=== PATIENT | female | born 1955 | race Caucasian/White ===

== ENCOUNTER 2017-07-26 06:10 | Emergency (ER) | payer SELFPAY ==
[2017-07-26] MEDS ORDERED: ONDANSETRON 4 MG/2 ML VIAL ONE ×2 (06:46→08:51)
[2017-07-26 07:01] VITALS: TEMP 97.9; BMI 23.0
[2017-07-26] MEDS ORDERED: KETOROLAC TROMETHAMINE 15 MG/ML VIAL ONE (07:03)
[2017-07-26 07:07] LABS: BASOPHIL 0.6 % (0-2.0); EOSINOPHIL 1.8 % (0-4.5); MCH 32.7 pg (25.7-33.7); MCHC 34.4 g/dl (32.0-36.0); MEAN CELL VOLUME 95.1 fl (80-96); MEAN PLT VOLUME 8.9 fl (7.5-11.1); NEUTROPHILS 42.5 % (42.8-82.8); PLATELET COUNT 240 K/MM3 (134-434); RDW 13.5 % (11.6-15.6); WHITE BLOOD COUNT 12.1 K/mm3 (4.0-10.0)
[2017-07-26] MEDS ORDERED: ONDANSETRON 4 MG/2 ML VIAL IVPUSH ONE ×2 (07:11→08:50)
[2017-07-26] MEDS ORDERED: SODIUM CHLORIDE 1,000 ML IV ONE (07:12)
[2017-07-26] MEDS ORDERED: KETOROLAC TROMETHAMINE 15 MG/ML VIAL IVPUSH ONE (07:12)
[2017-07-26] MEDS ORDERED: morphine CARPU-JECT 2 MG/1 ML DISP.SYRIN IVPUSH ONE (07:19)
--- NOTE | 2017-07-26 07:27 | PDOC ---
History of Present Illness - General Chief Complaint: Pain, Acute Stated Complaint: ABD PAIN,VOMITING Time Seen by Provider: 07/26/17 07:07 - History of Present Illness Initial Comments: 07/26/17 07:20 62yo female with no pmhx and pshx of c section x 3 presents with acute onset of L flank pain that started at 5am today. States pain woke her up. Never had a similar pain in the past. Starts in her L back and radiates around to her suprapubic region. Assoc with n/v. No diarrhea. No hematuria. No dysuria. No hesitancy. No recent f/c. No cp/sob. No cough. No sore throat. No rhinorrhea. No headache. Was feeling at baseline yesterday. No other complaints. Past History - Past Medical History Allergies/Adverse Reactions: Allergies Allergy/AdvReac Type Severity Reaction Status Date / Time No Known Allergies Allergy Verified 07/26/17 06:31 Home Medications: Ambulatory Orders Ibuprofen [Motrin -] 600 mg PO TID PRN #15 tablet 07/26/17 Ondansetron [Zofran *Odt*] 8 mg SL TID PRN #10 od.tablet 07/26/17 Oxycodone HCl/Acetaminophen [Percocet 5-325 mg Tablet] 1 tab PO Q6H PRN #10 tablet MDD 4 tabs 07/26/17 Tamsulosin HCl [Flomax] 0.4 mg PO DAILY #10 capsule 07/26/17 Other medical history: Pt denies - Suicide/Smoking/Psychosocial Hx Smoking History: Never smoked Have you smoked in the past 12 months: No Information on smoking cessation initiated: No Hx Alcohol Use: No Drug/Substance Use Hx: No Substance Use Type: None Review of Systems - Review of Systems Constitutional: No: Chills, Fever HEENTM: No: Nose Congestion, Throat Pain Respiratory: No: Cough, Shortness of Breath Cardiac (ROS): No: Chest Pain, Palpitations ABD/GI: Yes: Nausea, Vomiting. No: Blood Streaked Bowels, Constipated, Diarrhea : Yes: Flank Pain. No: Burning, Dysuria, Frequency, Hematuria Musculoskeletal: Yes: Back Pain. No: Muscle Weakness Integumentary: No: Rash Neurological: No: Headache All Other Systems: Reviewed and Negative *Physical Exam - Vital Signs Last Vital Signs Temp Pulse Resp BP Pulse Ox 97.9 F 88 20 130/82 97 07/26/17 06:32 07/26/17 06:32 07/26/17 06:32 07/26/17 06:32 07/26/17 06:32 - Physical Exam Comments: 07/26/17 07:31 gen: aaox3, uncomfortable, in pain heent: mmm, eomi neck: supple heart: +s1s2 reg Lungs: cta b/l Abd: soft, ttp suprapubic and LLQ, +L cva ttp ext: no c/c/e neuro: cn ii-xii grossly intact, no focal deficits skin: no rash ED Treatment Course - LABORATORY CBC & Chemistry Diagram: 07/26/17 06:45 07/26/17 06:45 - RADIOLOGY Radiology Studies Ordered: Category Date Time Status ABDOMEN & PELVIS CT W/O CONTR [CT] Stat CT Scan 07/26/17 07:20 Ordered - Medications Given in the ED: ED Medications Discontinued Medications Generic Name Dose Route Start Last Admin Trade Name Clif PRN Reason Stop Dose Admin Ketorolac Tromethamine 15 mg 07/26/17 07:12 07/26/17 07:13 Toradol Injection - IVPUSH 07/26/17 07:13 15 mg NOW ONE Administration Ondansetron HCl 4 mg 07/26/17 07:11 07/26/17 07:11 Zofran Injection IVPUSH 07/26/17 07:12 4 mg NOW ONE Administration Medical Decision Making - Medical Decision Making 07/26/17 07:32 62yo female with acute onset of L flank pain -suspect kidney stone -differential includes AAA (no palpable mass), diveriticulitis, pyelonephritis, hydronephrosis -will obtain labs, ct abd/pelvis, ua/ucx -pain control, nausea control, ivf hydration -reassess 07/26/17 09:19 pt feeling better. Pain controlled. Discussed imaging results - 4mm uvj stone on L. Mild hydro. No uti. Discussed need for follow up with PMD and urology. Will give urine strainer. Discussed all reasons to return to the Ed and need for follow up. answered all questions. 07/26/17 09:33 discussed with the patient how to strain her urine. Pt stable for d/c to home. *DC/Admit/Observation/Transfer Diagnosis at time of Disposition: Kidney stone on left side - Discharge Dispostion Admit: No - Prescriptions Prescriptions: Tamsulosin HCl [Flomax] 0.4 mg PO DAILY #10 capsule Ibuprofen [Motrin -] 600 mg PO TID PRN #15 tablet PRN Reason: Pain Level 6-10 Oxycodone HCl/Acetaminophen [Percocet 5-325 mg Tablet] 1 tab PO Q6H PRN #10 tablet MDD 4 tabs PRN Reason: Pain Level 6-10 Ondansetron [Zofran *Odt*] 8 mg SL TID PRN #10 od.tablet PRN Reason: Nausea And/Or Vomiting - Referrals Referrals: Neal Graham MD [Staff Physician] - Gurdeep Hinds MD [Staff Physician] - - Patient Instructions Printed Discharge Instructions: DI for Kidney Stones Additional Instructions: Please strain all urine. If you pass the stone and collect it in the strainer please take it with you to the urologist office. Please follow up with the urologist in 2-3 days. Please return to the ED with any further concerns. Please take all meds as prescribed. Please also follow up with your PMD in 2-3 days. Print Language: YI
[2017-07-26 07:28] LABS: ALBUMIN 3.8 g/dl (3.4-5.0); ALK PHOS 102 U/L (45-117); ANION GAP 12 (8-16); BILIRUBIN,TOTAL 0.4 mg/dL (0.2-1.0); CALCIUM 8.8 mg/dL (8.5-10.1); CO2 25 mmol/L (21-32); CREATININE 0.8 mg/dL (0.55-1.02); GLUCOSE,RANDOM 149 mg/dL (74-106); SGOT/AST 23 U/L (15-37); SGPT/ALT 20 U/L (12-78); TOT PROT 7.3 g/dl (6.4-8.2)
[2017-07-26 08:33] LABS: URINE APPEARANCE CLOUDY; URINE BILIRUBIN NEGATIVE (NEGATIVE); URINE BLOOD NEGATIVE (NEGATIVE); URINE COLOR YELLOW; URINE GLUCOSE (UA) NEGATIVE (NEGATIVE); URINE KETONE NEGATIVE (NEGATIVE); URINE NITRITE NEGATIVE (NEGATIVE); URINE PROTEIN 1+ (NEGATIVE); URINE UROBILINOGEN NEGATIVE mg/dL (0.2-1.0)
[2017-07-26] MEDS ORDERED: morphine CARPU-JECT 10 MG/1 ML DISP.SYRIN ONE ×2 (08:40→08:41)
[2017-07-26] MEDS ORDERED: SODIUM CHLORIDE 0.9% 1000 ML INFUS.BAG IV ONE (08:50)
[2017-07-26] MEDS ORDERED: FAMOTIDINE 20 MG/50 ML IVPB 50 ML IVPB ONE ×2 (08:50→08:51)
[2017-07-26] MEDS ORDERED: TAMSULOSIN HCL 0.4 MG CAP.ER.24H (FP) PO ONE (08:59)
[2017-07-26 09:23] LABS: URINE RBC 0-3 /hpf (0-3); URINE WBC 0-3 /hpf /hpf (3-5)
[2017-07-26] MEDS ORDERED: TAMSULOSIN HCL 0.4 MG CAP.ER.24H (FP) ONE (09:38)
[2017-07-26 10:01] VITALS: BP 113/45; PULSE 81
[2017-07-26 11:48] LABS: URINE LEUK ESTERASE Negative (NEGATIVE)
== END 2017-07-26 10:42 | disposition home or self-care (01) ==
LOC: JER 06:10
PROC: 3E033NZ Introduction of Analgesics, Hypnotics, Sedatives into Peripheral Vein, Percutaneous Approach (ICD-10-PCS; principal; 2017-07-26)
PROC: 3E033GC Introduction of Other Therapeutic Substance into Peripheral Vein, Percutaneous Approach (ICD-10-PCS; 2017-07-26)
PROC: 3E0337Z Introduction of Electrolytic and Water Balance Substance into Peripheral Vein, Percutaneous Approach (ICD-10-PCS; 2017-07-26)
PROC: 3E0333Z Introduction of Anti-inflammatory into Peripheral Vein, Percutaneous Approach (ICD-10-PCS; 2017-07-26)
DX: N23 Unspecified renal colic (principal)
CPT/HCPCS: 36415; 74176-TC; 80053; 81003; 81015; 84703; 85025; 87086; 99283-25

== ENCOUNTER 2017-09-06 13:56 | Inpatient (IN) | payer BC ==
[2017-09-06 14:01] VITALS: BMI 23.0
--- NOTE | 2017-09-06 15:03 | PDOC ---
History of Present Illness - General Chief Complaint: Pain Stated Complaint: SENT BY PCP Time Seen by Provider: 09/06/17 14:41 History Source: Patient Exam Limitations: No Limitations - History of Present Illness Initial Comments: This is a 62 YOF with h/o renal stone who presents c/o RUQ abdominal pain. 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 She took no medications for this and has never had this pain before. This feels nothing like her prior kidney stone pain. She has had nausea and one episode of vomiting, as well as a feeling like her abdomen is distended. She denies fever, chills, diarrhea, constipation, black or bloody stool, dysuria, hematuria, chest pain, shortness of breath, cough, or other recent symptoms. Past History - Past Medical History Allergies/Adverse Reactions: Allergies Allergy/AdvReac Type Severity Reaction Status Date / Time No Known Allergies Allergy Verified 09/06/17 14:01 Home Medications: Ambulatory Orders NK [No Known Home Medication] 09/06/17 COPD: No - Suicide/Smoking/Psychosocial Hx Smoking History: Never smoked Have you smoked in the past 12 months: No Hx Alcohol Use: No Drug/Substance Use Hx: No Substance Use Type: None Review of Systems - Review of Systems Constitutional: No: Chills, Fever, Unexplained wgt Loss HEENTM: No: Nose Congestion, Throat Pain Respiratory: No: Cough, Shortness of Breath Cardiac (ROS): No: Chest Pain, Palpitations ABD/GI: Yes: Abdominal Distended, Nausea, Vomiting, Other (right upper abdominal pain). No: Constipated, Diarrhea : No: Burning, Dysuria Musculoskeletal: No: Back Pain, Neck Pain Integumentary: No: Bruising, Rash Neurological: No: Headache, Numbness, Tingling, Weakness, Dizziness Endocrine: No: Unexplained Weight Gain, Unexplained Weight Loss *Physical Exam - Vital Signs Last Vital Signs Temp Pulse Resp BP Pulse Ox 97.6 F 82 20 147/83 10 L 09/06/17 13:58 09/06/17 13:58 09/06/17 13:58 09/06/17 13:58 09/06/17 13:58 - Physical Exam General Appearance: Yes: Nourished, Appropriately Dressed, Other (pleasant Yakut-speaking female laying on hospital bed and answering appropriately, appears comfortable). No: Apparent Distress HEENT: positive: EOMI, SHANELL, Normal Voice, Hearing Grossly Normal. negative: Scleral Icterus (R), Scleral Icterus (L), Nasal Congestion Neck: positive: Trachea midline, Supple. negative: Tender, Rigid Respiratory/Chest: positive: Lungs Clear, Normal Breath Sounds. negative: Respiratory Distress, Crackles, Rhonchi, Stridor, Wheezing Cardiovascular: positive: Regular Rhythm, Regular Rate. negative: Murmur Gastrointestinal/Abdominal: positive: Normal Bowel Sounds, Tender (moderate RUQ ttp with positive Case's sign, no epigastric, RLQ, or other abdominal ttp, no peritoneal signs), Soft. negative: Organomegaly, Pulsatile Mass, Guarding Musculoskeletal: positive: Normal Inspection. negative: CVA Tenderness, Decreased Range of Motion, Vertebral Tenderness Extremity: positive: Normal Capillary Refill, Normal Inspection, Normal Range of Motion. negative: Tender, Cyanosis Integumentary: positive: Normal Color, Dry, Warm. 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 On exam slight HTN but otherwise VS wnl, no acute distress, RUQ ttp +Case's sign. No jaundice, no epigastric ttp, no ttp McBurney's point, no confusion, otherwise exam wnl. DDX IBNLT cholecystitis (i.e. gallstone), pancreatitis, PUD, ureteral stone, appendicitis, SBO, AAA, etc. Ordered is abdominal US, CBCD, CMP, lipase, T&S, coags. 09/06/17 16:59 Patient ask for pain medication, ordered is 1 GM IV Tylenol. 12/06/17 17:57 Patient's pain much improved after Tylenol. On workup she has slight WBC elevation and mild alk phos elevation. US shows stones within the GB, distended GB with thickened ghosh. Surgery paged. 09/06/17 18:[address] Menon who will come see the patient in the ED and check OR schedule for tomorrow. Dr. Dagoberto Guillaume (Pt's PCP) is paged to inform him and discuss to whom to admit. 09/06/17 19:07 Patient is admitted to Dr. Dagoberto Guillaume, inpatient med/surg. Dr. Guillaume will place consult order for ID Dr. Mallory. Consult order placed to Dr. Menon. *DC/Admit/Observation/Transfer Diagnosis at time of Disposition: Cholecystitis with cholelithiasis Qualifiers: Cholelithiasis location: gallbladder Cholecystitis acuity: acute Biliary obstruction: without biliary obstruction Qualified Code(s): K80.00 - Calculus of gallbladder with acute cholecystitis without obstruction - Discharge Dispostion Condition at time of disposition: Guarded Admit: Yes - Referrals Referrals: Dagoberto Guillaume MD [Primary Care Provider] - - Patient Instructions - Post Discharge Activity
[2017-09-06 16:46] LABS: URINE APPEARANCE CLEAR; URINE BILIRUBIN NEGATIVE (NEGATIVE); URINE BLOOD NEGATIVE (NEGATIVE); URINE COLOR STRAW; URINE GLUCOSE (UA) NEGATIVE (NEGATIVE); URINE KETONE NEGATIVE (NEGATIVE); URINE LEUK ESTERASE NEGATIVE (NEGATIVE); URINE NITRITE NEGATIVE (NEGATIVE); URINE PROTEIN NEGATIVE (NEGATIVE); URINE UROBILINOGEN NEGATIVE mg/dL (0.2-1.0)
[2017-09-06] MEDS ORDERED: SODIUM CHLORIDE 0.9% 1000 ML INFUS.BAG IV ONE (16:57)
[2017-09-06] MEDS ORDERED: ACETAMINOPHEN 1000 MG/100 ML VIAL (NON FORMULARY) IVPB ONE (16:57)
[2017-09-06] MEDS ORDERED: ACETAMINOPHEN INJECTION 100 ML IVPB ONE (17:02)
[2017-09-06 17:18] LABS: BASOPHIL 0.2 % (0-2.0); EOSINOPHIL 0.1 % (0-4.5); MCH 33.1 pg (25.7-33.7); MCHC 34.2 g/dl (32.0-36.0); MEAN PLT VOLUME 9.5 fl (7.5-11.1); PLATELET COUNT 281 K/MM3 (134-434); WHITE BLOOD COUNT 10.6 K/mm3 (4.0-10.0)
[2017-09-06 17:36] LABS: ALBUMIN 4.2 g/dl (3.4-5.0); ANION GAP 8 (8-16); CALCIUM 9.1 mg/dL (8.5-10.1); CO2 29 mmol/L (21-32); CREATININE 0.6 mg/dL (0.55-1.02); GLUCOSE,RANDOM 90 mg/dL (74-106); SGOT/AST 25 U/L (15-37); SGPT/ALT 27 U/L (12-78)
[2017-09-06 17:39] LABS: ALK PHOS 128 U/L (45-117); BILIRUBIN,TOTAL 0.3 mg/dL (0.2-1.0); TOT PROT 8.1 g/dl (6.4-8.2)
[2017-09-06 17:43] LABS: INR 1.09 (0.82-1.09); PROTHROMBIN TIME (PATIENT) 12.3 SEC (9.98-11.88)
--- NOTE | 2017-09-06 18:46 | PDOC ---
Attending Attestation - Resident Resident Name: Tanvi Mendenhall - ED Attending Attestation I have performed the following: I have examined & evaluated the patient, The case was reviewed & discussed with the resident, I agree w/resident's findings & plan, Exceptions are as noted - HPI HPI: 09/06/17 18:39 62 F with h/o nephrolithiasis presenting to ER with abdominal pain. Pt reports RUQ pain that started after eating dinner at 2am this morning. Pain is constant , non-radiating. Has never had this before. Endorses N+V x 1. No F/C. No diarrhea/constipation. No prior surgeries. - Physicial Exam PE: 09/06/17 18:46 "GENERAL: Awake, alert, and fully oriented, in no acute distress HEAD: No signs of trauma EYES: PERRLA, EOMI, sclera anicteric, conjunctiva clear ENT: Auricles normal inspection, hearing grossly normal, nares patent, oropharynx clear without exudates. Moist mucosa NECK: Nontender, no stepoffs, Normal ROM, supple, no lymphadenopathy, JVD, or masses LUNGS: Breath sounds equal, clear to auscultation bilaterally. No wheezes, and no crackles HEART: Regular rate and rhythm, normal S1 and S2, no murmurs, rubs or gallops ABDOMEN: +RUQ tenderness, + Case's, no rebound/guarding EXTREMITIES: Normal range of motion, no edema. No clubbing or cyanosis. No cords, erythema, or tenderness NEUROLOGICAL: Cranial nerves II through XII intact. 5/5 strength and sensation in all extremities, Normal speech, normal gait SKIN: Warm, Dry, normal turgor, no rashes or lesions noted. " - Medical Decision Making 09/06/17 18:46 62 F with RUQ pain, N+V, and + case's on exam. Concerning for acute cholecystitis. - Labs - RUQ sono - NPO - IVF, pain control
[2017-09-06] MEDS ORDERED: morphine CARPU-JECT 4 MG/1 ML DISP.SYRIN IVPUSH ONE (19:11)
[2017-09-06] MEDS ORDERED: morphine SULFATE 4 MG/ML VIAL ONE (19:14)
--- NOTE | 2017-09-06 19:16 | HP ---
Admitting History and Physical - Admission Chief Complaint: pt came to my office new pt c/o ruq pain scale 6. n/v x 1 day. no other complaints History of Present Illness: had h/o of gallstones no tx in past History Source: Patient Limitations to Obtaining History: No Limitations - Past Medical History Gastrointestinal: Yes: GERD, Other (gallstones) ...: No - Smoking History Smoking history: Never smoked Have you smoked in the past 12 months: No - Alcohol/Substance Use Hx Alcohol Use: No History of Substance Use: reports: None - Social History ADL: Independent History of Recent Travel: No Home Medications - Allergies Allergies/Adverse Reactions: Allergies Allergy/AdvReac Type Severity Reaction Status Date / Time No Known Allergies Allergy Verified 09/06/17 14:01 - Home Medications Home Medications: Ambulatory Orders NK [No Known Home Medication] 09/06/17 Family Disease History - Family Disease History Family History: Unremarkable Review of Systems - Review of Systems Constitutional: reports: Other (ruq pain) Physical Examination Vital Signs: Vital Signs Temperature 97.6 F 09/06/17 13:58 Pulse Rate 82 09/06/17 13:58 Respiratory Rate 20 09/06/17 13:58 Blood Pressure 147/83 09/06/17 13:58 O2 Sat by Pulse Oximetry (%) 10 L 09/06/17 13:58 Constitutional: Yes: Well Nourished Eyes: Yes: WNL HENT: Yes: WNL Neck: Yes: WNL Cardiovascular: Yes: WNL Respiratory: Yes: WNL Gastrointestinal: Yes: Tenderness, Epigastrium ...Rectal Exam: Yes: Deferred Renal/: Yes: WNL Breast(s): Yes: WNL Musculoskeletal: Yes: WNL Extremities: Yes: WNL Edema: No Peripheral Pulses WNL: Yes Integumentary: Yes: WNL Neurological: Yes: WNL Labs: CBC, BMP 09/06/17 17:00 09/06/17 16:20 Assessment/Plan npo sx consult id to see py ? gi if complicated iv cefazolin iv dilodid po pain
[2017-09-06] MEDS ORDERED: cefOXitin SODIUM 2 GM VIAL (RESTRICTED TO ID) IVPB ONE (19:19)
[2017-09-06] MEDS ORDERED: HYDROmorphone HCL CARPU-JECT 2 MG/1 ML DISP.SYRIN IVPB PRN (19:19)
[2017-09-06] MEDS ORDERED: PANTOPRAZOLE SODIUM 40 MG VIAL IVPUSH ONE (19:30)
[2017-09-06] MEDS ORDERED: CEFOXITIN SODIUM 2 GM in DEXTROSE 5%-WATER - 100 ML IVPB ONE ×2 (19:30→21:30)
[2017-09-06] MEDS: SODIUM CHLORIDE 1,000 ML IV SCH ×2 (19:35→19:42)
[2017-09-06] MEDS ORDERED: PANTOPRAZOLE SODIUM 40 MG/100 ML BAG IVPB ONE (19:36)
--- NOTE | 2017-09-06 19:57 | CONSULT ---
Consult Consult Specialty:: General Surgery Referred by:: Dr. Mendenhall, Dr. Guillaume Reason for Consultation:: cholecystitis - History of Present Illness Chief Complaint: RUQ pain History of Present Illness: 62yo F, generally healthy, h/o c-sections x3, GERD, urolithiasis/ nephrolithiasis, c/o RUQ pain that came on ~2am after having some soup (chicken/ rice) at work early this morning, associated with abdominal distention/ bloating. She got home shortly after, and felt that perhaps vomiting would make her feel better, so took some baking soda and water, and threw up, which did help briefly. The pain persisted, however, and she has never had pain this bad before. It does not feel like the ureteral stone she had in July (was left- sided), and her PCP sent her to ER. In the ER, she had a wbc 10.6, normal LFTs except slightly elevated alk phos at 128, normal lipase. She is afebrile, no f/c , no nausea or further emesis. No change in bowel habits, no d/c. Normal bowel movement yesterday. She has been NPO since this morning, last had coffee. US in ER showed multiple gallstones in distended gallbladder, thickened wall but no pericholecystic fluid, normal cbd. The CT from July shows at least 3 large rim-calcified gallstones. She currently has pain in the epigastric area and RUQ , about the same as earlier, despite IV acetaminophen. She is getting IV fluids and has voided. - History Source History Provided By: Patient Limitations to Obtaining History: No Limitations - Past Medical History Gastrointestinal: Yes: GERD Hepatobiliary: Yes: Cholelithiasis Renal/: Yes: Renal Calculi Reproductive: Yes: Postmenopausal ...: No - Past Surgical History Past Surgical History: Yes: Colonoscopy (Dr. Jacob, few yrs ago), (x3 ) - Alcohol/Substance Use Hx Alcohol Use: No History of Substance Use: reports: None - Smoking History Smoking history: Never smoked Have you smoked in the past 12 months: No - Social History ADL: Independent Occupation: housekeeping History of Recent Travel: No Home Medications - Allergies Allergies/Adverse Reactions: Allergies Allergy/AdvReac Type Severity Reaction Status Date / Time No Known Allergies Allergy Verified 09/06/17 14:01 - Home Medications Home Medications: Ambulatory Orders NK [No Known Home Medication] 09/06/17 Home Medications (free text): Zantac prn Family Disease History - Family Disease History Family Disease History: Other: Mother ( of liver cirrhosis) Review of Systems - Review of Systems Constitutional: denies: Chills, Fever Eyes: reports: Other (uses reading glasses). denies: Recent Change in Vision HENT: reports: Other (has several permanent dental implants). denies: Difficult Swallowing, Hearing Loss, Nasal Congestion, Throat Pain Neck: denies: Pain on Movement, Swollen Glands, Tenderness Cardiovascular: denies: Chest Pain, Palpitations Respiratory: denies: Cough, SOB Gastrointestinal: reports: Abdominal Pain (with hpi), Bloating (with hpi), Indigestion (at times, uses Zantac prn), Nausea (occasionally when she gets headaches), Vomiting (one self-induced episode). denies: Constipation, Diarrhea Genitourinary: denies: Burning, Dysuria, Frequency, Urgency Musculoskeletal: reports: Back Pain (occasionally), Joint Pain (occasionally, knees, right elbow). denies: Muscle Pain Integumentary: denies: Change in Color, Rash Neurological: reports: Headache (sometimes, from stress or hunger, responds to ibuprofen prn). denies: Dizziness, Unsteady Gait Psychiatric: denies: Anxiety, Depression Physical Exam Vital Signs: Vital Signs Temperature 98.2 F 09/06/17 19:33 Pulse Rate 77 09/06/17 19:33 Respiratory Rate 14 09/06/17 19:33 Blood Pressure 117/53 09/06/17 19:33 O2 Sat by Pulse Oximetry (%) 99 09/06/17 19:33 Constitutional: Yes: Well Nourished, Calm, Mild Distress (secondary to pain) Eyes: Yes: Conjunctiva Clear, EOM Intact. No: Sclera Icterus HENT: Yes: Atraumatic, Normocephalic Neck: Yes: Supple, Trachea Midline Cardiovascular: Yes: Regular Rate and Rhythm. No: Murmur Respiratory: Yes: Regular, CTA Bilaterally Gastrointestinal: Yes: Soft, Hypoactive Bowel Sounds, Tenderness (RUQ and epigastric also just lateral to RUQ but not onto flank/CVA, no rebound or guarding), Tenderness, Epigastrium. No: Distention, Tenderness, Rebound ...Rectal Exam: Yes: Deferred Renal/: No: CVA Tenderness - Left, CVA Tenderness - Right Musculoskeletal: No: Back Pain (no direct tenderness), Joint Swelling Extremities: No: Cool, Cyanosis Edema: No Peripheral Pulses WNL: Yes Integumentary: No: Jaundice, Rash Neurological: Yes: Alert, Oriented Psychiatric: Yes: Alert, Oriented Labs: CBC, BMP 09/06/17 17:00 09/06/17 16:20 CMP Sodium 138 mmol/L (136-145) 09/06/17 16:20 Potassium 4.0 mmol/L (3.5-5.1) 09/06/17 16:20 Chloride 101 mmol/L (98-107) 09/06/17 16:20 Carbon Dioxide 29 mmol/L (21-32) 09/06/17 16:20 Anion Gap 8 (8-16) 09/06/17 16:20 BUN 9 mg/dL (7-18) D 09/06/17 16:20 Creatinine 0.6 mg/dL (0.55-1.02) D 09/06/17 16:20 Creat Clearance w eGFR > 60 (>60) 09/06/17 16:20 Random Glucose 90 mg/dL (74-106) D 09/06/17 16:20 Calcium 9.1 mg/dL (8.5-10.1) 09/06/17 16:20 Total Bilirubin 0.3 mg/dL (0.2-1.0) D 09/06/17 16:20 AST 25 U/L (15-37) 09/06/17 16:20 ALT 27 U/L (12-78) D 09/06/17 16:20 Alkaline Phosphatase 128 U/L (45-117) H D 09/06/17 16:20 Total Protein 8.1 g/dl (6.4-8.2) 09/06/17 16:20 Albumin 4.2 g/dl (3.4-5.0) 09/06/17 16:20 Lipase 169 U/L (73-393) 09/06/17 16:20 INR, PTT INR 1.09 (0.82-1.09) 09/06/17 17:00 Urine Test Results Urine Color Straw 09/06/17 15:20 Urine Appearance Clear 09/06/17 15:20 Urine pH 9.0 (5.0-8.0) H 09/06/17 15:20 Ur Specific [place] 1.008 (1.001-1.035) 09/06/17 15:20 Urine Protein Negative (NEGATIVE) 09/06/17 15:20 Urine Glucose (UA) Negative (NEGATIVE) 09/06/17 15:20 Urine Ketones Negative (NEGATIVE) 09/06/17 15:20 Urine Blood Negative (NEGATIVE) 09/06/17 15:20 Urine Nitrite Negative (NEGATIVE) 09/06/17 15:20 Urine Bilirubin Negative (NEGATIVE) 09/06/17 15:20 Imaging - Results Cat Scan: Image Reviewed (from Jul 2017) Ultrasound: Report Reviewed (multiple gallstones, thickened gb wall, no pericholecystic fluid, cbd normal, no biliary dilation), Image Reviewed EKG: Pending Problem List - Problems (1) Calculus of gallbladder with acute cholecystitis without obstruction Assessment/Plan: admitted to medicine/PMD keep NPO with IV fluids until postop pain meds prn trend labs in am GI/DVT prophylaxis IV antibiotics (Cefoxitin) started, ID consulted to continue through 1-2 doses postop if am labs show increases in LFTs or concern for possible ductal stone, would do MRCP and consult GI (known to Nidia) if not, plan for lap brayden when OR available tomorrow Discussed with patient risks, benefits and alternatives of laparoscopic possible open cholecystectomy, including but not limited to bleeding, infection , injury to adjacent structures, bile leak or ductal injury, intraabdominal abscess, need for further procedures; alternatives include antibiotics, delayed or no surgery - risks of this include recurrence of biliary colic, cholecystitis , cholangitis, pancreatitis. Patient desires to proceed with operation - pending am lab results, either I or my partner Dr. Hopson will take her to OR tomorrow for above. Informed consent signed for same. Thank you for the opportunity to participate in the care of this patient. Code(s): K80.00 - CALCULUS OF GALLBLADDER W ACUTE CHOLECYST W/O OBSTRUCTION (2) Abdominal pain, acute, right upper quadrant Code(s): R10.11 - RIGHT UPPER QUADRANT PAIN (3) GERD without esophagitis Assessment/Plan: GI prophylaxis while in hospital Code(s): K21.9 - GASTRO-ESOPHAGEAL REFLUX DISEASE WITHOUT ESOPHAGITIS (4) Kidney stone on left side Code(s): N20.0 - CALCULUS OF KIDNEY
[2017-09-06 20:10] LABS: URINE LEUK ESTERASE Negative (NEGATIVE)
[2017-09-06] MEDS: DOCUSATE SODIUM 100 MG CAPSULE (FP) PO SCH (22:48)
[2017-09-07] MEDS: DOCUSATE SODIUM 100 MG CAPSULE (FP) PO SCH ×3 (05:50→21:30)
[2017-09-07] MEDS: SODIUM CHLORIDE 1,000 ML IV SCH ×2 (05:50→19:30)
[2017-09-07 07:25] LABS: BASOPHIL 0.1 % (0-2.0); EOSINOPHIL 0.2 % (0-4.5); MCH 32.4 pg (25.7-33.7); MCHC 33.5 g/dl (32.0-36.0); MEAN CELL VOLUME 96.7 fl (80-96); MEAN PLT VOLUME 9.5 fl (7.5-11.1); PLATELET COUNT 255 K/MM3 (134-434); RDW 13.3 % (11.6-15.6); WHITE BLOOD COUNT 11.5 K/mm3 (4.0-10.0)
[2017-09-07] MEDS ORDERED: cefOXitin SODIUM 2 GM VIAL (RESTRICTED TO ID) IVPB ONE ×2 (07:42→18:30)
[2017-09-07 08:00] LABS: ALBUMIN 3.6 g/dl (3.4-5.0); ALK PHOS 155 U/L (45-117); ANION GAP 8 (8-16); BILIRUBIN,TOTAL 0.5 mg/dL (0.2-1.0); CALCIUM 8.7 mg/dL (8.5-10.1); CO2 28 mmol/L (21-32); CREATININE 0.6 mg/dL (0.55-1.02); GLUCOSE,RANDOM 93 mg/dL (74-106); SGOT/AST 182 U/L (15-37); SGPT/ALT 153 U/L (12-78)
--- NOTE | 2017-09-07 09:52 | PN ---
Progress Note, Physician Chief Complaint: abdominal pain History of Present Illness: 62yo female PMH GERD, nephrolithiasis presented with RUQ abdominal pain. abdomainl US showed multiple gallstones in distended gallbladder, thickened wall but no pericholecystic fluid, normal cbd. She has been NPO on IVF in anticipation of surgery, received one dose of cefoxiting last night. This morning she reports continued abdominal pain. she had not felt febrile despite Tmax 100.1. - Current Medication List Current Medications: Active Medications Docusate Sodium (Colace -) 100 mg PO TID [facility] Last Admin: 09/07/17 05:50 Dose: 100 mg Hydromorphone HCl (Dilaudid Injection -) 2 mg IVPB Q6H PRN PRN Reason: PAIN Sodium Chloride (Normal Saline -) 1,000 mls @ 100 mls/hr IV ASDIR [facility] Last Admin: 09/07/17 05:50 Dose: 100 mls/hr Sodium Chloride (Normal Saline -) 1,000 mls @ 100 mls/hr IV ASDIR [facility] Last Admin: 09/06/17 19:42 Dose: Not Given - Objective Vital Signs: Vital Signs Temperature 100.1 F H 09/07/17 06:00 Pulse Rate 79 09/07/17 06:00 Respiratory Rate 16 09/07/17 06:00 Blood Pressure 113/62 09/07/17 06:00 O2 Sat by Pulse Oximetry (%) 97 09/06/17 20:50 Vital Signs Period Temp Pulse Resp BP Sys/Godwin Pulse Ox Last 24 Hr 97.6 F-100.1 F 77-82 14-20 113-147/53-83 10-99 Constitutional: Yes: Well Nourished, No Distress, Calm Eyes: Yes: Conjunctiva Clear, EOM Intact HENT: Yes: Atraumatic, Normocephalic Neck: Yes: Supple, Trachea Midline Respiratory: Yes: Regular, CTA Bilaterally Gastrointestinal: Yes: Normal Bowel Sounds, Soft, Tenderness (RUQ, márquez's positive), Tenderness, Epigastrium. No: Hepatomegaly, Tenderness, Rebound ...Rectal Exam: Yes: Deferred Genitourinary: No: CVA Tenderness - Left, CVA Tenderness - Right Extremities: No: Cool, Cyanosis Edema: No Peripheral Pulses WNL: Yes Peripheral Pulses: Left Doralis Pedis: 2+, Right Dorsalis Pedis: 2+ Integumentary: No: Jaundice, Rash Neurological: Yes: Alert, Oriented. No: Confusion Psychiatric: Yes: Alert, Oriented Labs: CBC,CMP WBC 11.5 K/mm3 (4.0-10.0) H 09/07/17 07:05 RBC 4.02 M/mm3 (3.60-5.2) 09/07/17 07:05 Hgb 13.0 GM/dL (10.7-15.3) 09/07/17 07:05 Hct 38.9 % (32.4-45.2) 09/07/17 07:05 MCV 96.7 fl (80-96) H 09/07/17 07:05 MCH 32.4 pg (25.7-33.7) 09/07/17 07:05 MCHC 33.5 g/dl (32.0-36.0) 09/07/17 07:05 RDW 13.3 % (11.6-15.6) 09/07/17 07:05 Plt Count 255 K/MM3 (134-434) 09/07/17 07:05 MPV 9.5 fl (7.5-11.1) 09/07/17 07:05 Neutrophils % 66.0 % (42.8-82.8) 09/07/17 07:05 Lymphocytes % 27.2 % (8-40) D 09/07/17 07:05 Monocytes % 6.5 % (3.8-10.2) 09/07/17 07:05 Eosinophils % 0.2 % (0-4.5) D 09/07/17 07:05 Basophils % 0.1 % (0-2.0) 09/07/17 07:05 Sodium 139 mmol/L (136-145) 09/07/17 07:05 Potassium 3.9 mmol/L (3.5-5.1) 09/07/17 07:05 Chloride 103 mmol/L (98-107) 09/07/17 07:05 Carbon Dioxide 28 mmol/L (21-32) 09/07/17 07:05 Anion Gap 8 (8-16) 09/07/17 07:05 BUN 9 mg/dL (7-18) 09/07/17 07:05 Creatinine 0.6 mg/dL (0.55-1.02) 09/07/17 07:05 Creat Clearance w eGFR > 60 (>60) 09/07/17 07:05 Random Glucose 93 mg/dL (74-106) 09/07/17 07:05 Calcium 8.7 mg/dL (8.5-10.1) 09/07/17 07:05 Total Bilirubin 0.5 mg/dL (0.2-1.0) D 09/07/17 07:05 AST 182 U/L (15-37) H D 09/07/17 07:05 ALT 153 U/L (12-78) H D 09/07/17 07:05 Alkaline Phosphatase 155 U/L (45-117) H D 09/07/17 07:05 Total Protein 7.0 g/dl (6.4-8.2) 09/07/17 07:05 Albumin 3.6 g/dl (3.4-5.0) 09/07/17 07:05 Lipase 497 U/L (73-393) H 09/07/17 07:05 - ....Imaging Ultrasound: Report Reviewed, Image Reviewed MRI: Pending Problem List - Problems (1) Calculus of gallbladder with acute cholecystitis without obstruction Assessment/Plan: 62yo PMH GERD and nephrolithiasis, presented with what appeared to be cholecystitis but may have an element of choledocholithiasis or gallstone pancreatitis based on lab trends. Evolving leukocytosis 10.6 (N59%) => 11.5 (N66 %), evolving transaminitis AST 25=>182, ALT 27=>153, alkphos 128-155 and new elevation in Lipase 169 => 497. We will cancel surgery for now and obtain MRCP today. This plan was discussed with the patient. keep NPO with IVF hydration f/u MRCP today continue empiric IV antibiotics culture fever spikes >101 consider ID and GI consultation pain meds prn trend labs GI/DVT prophylaxis discussed with Dr. Menon Code(s): K80.00 - CALCULUS OF GALLBLADDER W ACUTE CHOLECYST W/O OBSTRUCTION (2) Pancreatitis due to biliary obstruction Code(s): K85.90 - ACUTE PANCREATITIS WITHOUT NECROSIS OR INFECTION, UNSP; K83.1 - OBSTRUCTION OF BILE DUCT Qualifiers: Chronicity: acute Acute pancreatitis complication: unspecified Qualified Code(s): K85.10 - Biliary acute pancreatitis without necrosis or infection (3) Cholecystitis with cholelithiasis Code(s): K80.10 - CALCULUS OF GALLBLADDER W CHRONIC CHOLECYST W/O OBSTRUCTION Qualifiers: Cholelithiasis location: gallbladder Cholecystitis acuity: acute Biliary obstruction: without biliary obstruction Qualified Code(s): K80.00 - Calculus of gallbladder with acute cholecystitis without obstruction (4) Abdominal pain, acute, right upper quadrant Code(s): R10.11 - RIGHT UPPER QUADRANT PAIN (5) GERD without esophagitis Code(s): K21.9 - GASTRO-ESOPHAGEAL REFLUX DISEASE WITHOUT ESOPHAGITIS
[2017-09-07] MEDS ORDERED: cefOXitin SODIUM 2 GM VIAL (RESTRICTED TO ID) IVPB STA (10:23)
[2017-09-07] MEDS ORDERED: CEFOXITIN SODIUM 2 GM in DEXTROSE 5%-WATER - 100 ML IVPB ONE ×2 (11:00→18:30)
--- NOTE | 2017-09-07 11:06 | PN ---
Progress Note, Physician Chief Complaint: less ruq pain no n/v - Current Medication List Current Medications: Active Medications Docusate Sodium (Colace -) 100 mg PO TID [facility] Last Admin: 09/07/17 05:50 Dose: 100 mg Hydromorphone HCl (Dilaudid Injection -) 2 mg IVPB Q6H PRN PRN Reason: PAIN Sodium Chloride (Normal Saline -) 1,000 mls @ 100 mls/hr IV ASDIR [facility] Last Admin: 09/07/17 05:50 Dose: 100 mls/hr Sodium Chloride (Normal Saline -) 1,000 mls @ 100 mls/hr IV ASDIR [facility] Last Admin: 09/06/17 19:42 Dose: Not Given Cefoxitin Sodium (Mefoxin (Restricted To Id) -) 1 gm in 10 mls @ 120 mls/hr IVPUSH ONCE ONE Stop: 09/07/17 11:04 Cefoxitin Sodium (Mefoxin (Restricted To Id) -) 1 gm in 10 mls @ 120 mls/hr IVPUSH ONCE@1830 ONE Stop: 09/07/17 18:34 - Objective Vital Signs: Vital Signs Temperature 98.9 F 09/07/17 10:11 Pulse Rate 81 09/07/17 10:11 Respiratory Rate 20 09/07/17 10:11 Blood Pressure 111/64 09/07/17 10:11 O2 Sat by Pulse Oximetry (%) 97 09/06/17 20:50 Constitutional: Yes: Well Nourished Eyes: Yes: WNL HENT: Yes: WNL Neck: Yes: WNL Cardiovascular: Yes: WNL Respiratory: Yes: WNL Gastrointestinal: Yes: Tenderness, Epigastrium ...Rectal Exam: Yes: Deferred Genitourinary: Yes: WNL Breast(s): Yes: WNL Musculoskeletal: Yes: WNL Extremities: Yes: WNL Edema: No Peripheral Pulses WNL: Yes Integumentary: Yes: WNL Neurological: Yes: WNL ...Motor Strength: WNL Labs: CBC, BMP 09/07/17 07:05 09/07/17 07:05 INR, PTT INR 1.09 (0.82-1.09) 09/06/17 17:00 Assessment/Plan mrcp now to r/o heptobilary obst and where gi ? ercp if needed sx f/u i d atbx chk labs in am cont tx as is
--- NOTE | 2017-09-07 11:35 | EKG ---
Test Reason : Blood Pressure : / mmHG Vent. Rate : 074 BPM Atrial Rate : 074 BPM P-R Int : 166 ms QRS Dur : 086 ms QT Int : 436 ms P-R-T Axes : 056 003 033 degrees QTc Int : 483 ms NORMAL SINUS RHYTHM NORMAL ECG NO PREVIOUS ECGS AVAILABLE Confirmed by PALOMO MAYA MD ([id number]) on 09/07/2017 11:35:30 AM Referred By: Confirmed By:PALOMO MAYA MD
[2017-09-07] MEDS: CEFOXITIN SODIUM 1 GM PUSH 1 GM/10 ML DISP.SYRIN IVPUSH ONE ×2 (12:28→13:23)
--- NOTE | 2017-09-07 13:41 | PN ---
Progress Note (short form) - Note Progress Note: ID Consult dictated Probable acute cholecystitis Possible gallstone pancreatitis, biliary sepsis Obtain blood c/s Empiric cefoxitin Surgical follow up
[2017-09-07] MEDS ORDERED: CEFOXITIN SODIUM 1 GM in DEXTROSE 5%-WATER - 100 ML IVPB SCH (15:00)
--- NOTE | 2017-09-07 15:13 | CONS ---
INFECTIOUS DISEASE CONSULTATION DATE OF CONSULTATION: DATE OF DICTATION: 09/07/2017 HISTORY OF PRESENT ILLNESS: A 62-year-old female with a history of nephrolithiasis evaluated for acute cholecystitis. She was admitted to the hospital on September 06, 2017, with abrupt onset of right upper quadrant abdominal pain. The patient states that she had eaten soup in the early a.m. She developed acute, sharp, right upper quadrant abdominal pain at approximately 2 a.m., associated with nausea and 1 episode of vomiting. She denied any diarrhea. The patient reports having a bowel movement on the day of admission. She was evaluated in the hospital where a sonogram showed stones and a distended, thickened gallbladder. There was no pericholecystic fluid or dilated bile ducts. Her hospital course has been significant for continued pain and worsening of her liver enzymes and serum lipase. An MRI was performed; the results of which are pending. At the present time, she has no complaints of abdominal pain. Temperature elevation of 100.1 noted. PAST MEDICAL HISTORY: Positive for nephrolithiasis, gastroesophageal reflux. PAST SURGICAL HISTORY: Status post section. ALLERGIES: No known allergies. MEDICATIONS: Include cefoxitin, Colace, Dilaudid. SOCIAL HISTORY: Negative for tobacco, alcohol, or illicit drug use. SYSTEMS REVIEW: Neurologic: No loss of consciousness, seizure activity, or focal weakness. Cardiac: Negative chest pain and palpitations. Respiratory: Negative cough or sputum production. Gastrointestinal: As per HPI. Genitourinary: Negative for urinary tract infection. LABORATORY DATA: White count 11.5, hematocrit 38.9, platelet count 255. BUN 9, creatinine 0.6. Total bilirubin 0.5, alkaline phosphatase 155, AST 182, ALT 153. Urinalysis negative. Urine culture negative. PHYSICAL EXAMINATION: General: She is awake and alert, in no acute distress, supine in bed. Vital Signs: Temperature 98.9, T-max 100.1; blood pressure 111/64; pulse 81, regular; respirations 20 per minute. HEENT: Sclerae are anicteric. Heart: Sounds S1, S2. Lungs: Clear. Diminished breath sounds at the bases. Abdomen: Soft. There is some mild right upper quadrant tenderness to palpation. No mass, rebound, or rigidity. Extremities: Negative for edema. IMPRESSION: 1. Probable acute cholecystitis. 2. Possible gallstone pancreatitis and biliary sepsis. RECOMMENDATIONS: Obtain blood cultures. Empiric antibiotic coverage with cefoxitin 1 g IV piggyback every 6 hours. Analgesics as needed. Surgical followup. Will follow. Thank you for the kind referral. CLEVE FOLEY M.D. [id number]
[2017-09-07] MEDS ORDERED: PT OWN MED DRAWER 7, Y5N ONE ×2 (18:14→18:40)
--- NOTE | 2017-09-07 18:17 | CON.GI ---
Consult Consult Specialty:: gastroenterology Referred by:: Dr Herb Guillaume - History of Present Illness History of Present Illness: 62 y/o female was doing well until yesterday when she developed severe epigastric pain after eating. She deniea nausea and vomiting. Today she feels better. She was also noted to have mild elevation of her lipase and liver enzymes. MRCP reveal normal CBD( await officlal reading. - History Source History Provided By: Patient - Past Medical History WRIST CLOSER: Yes: CVA Pulmonary: Yes: Bronchitis Gastrointestinal: Yes: GERD. No: Constipation Hepatobiliary: Yes: Cholelithiasis Renal/: Yes: Renal Calculi ...: No - Past Surgical History Past Surgical History: Yes: Colonoscopy (Dr. Jacob, few yrs ago), (x3 ) - Alcohol/Substance Use Hx Alcohol Use: No History of Substance Use: reports: None - Smoking History Smoking history: Never smoked Have you smoked in the past 12 months: No - Social History ADL: Independent Occupation: housekeeping History of Recent Travel: No Home Medications - Allergies Allergies/Adverse Reactions: Allergies Allergy/AdvReac Type Severity Reaction Status Date / Time No Known Allergies Allergy Verified 09/06/17 14:01 - Home Medications Home Medications: Ambulatory Orders NK [No Known Home Medication] 09/06/17 Family Disease History - Family Disease History Family History: Denies (colon and gastric cancer) Family Disease History: Other: Mother ( of liver cirrhosis) Review of Systems - Review of Systems Constitutional: denies: Fever HENT: denies: Difficult Swallowing Neck: denies: Decreased ROM Cardiovascular: denies: No Symptoms, Chest Pain, Edema, Palpitations, Shortness of Breath, Other Respiratory: denies: No Symptoms, Cough, Exercise Intolerance, Hemoptysis, Orthopnea, PND, Snoring, SOB, SOB on Exertion, Wheezing, Other Gastrointestinal: reports: Abdominal Pain (--reovled). denies: Bloating, Constipation, Indigestion, Melena, Nausea, Rectal Bleeding Physical Exam-GI Vital Signs: Vital Signs Temperature 97.9 F 09/07/17 13:56 Pulse Rate 81 09/07/17 13:56 Respiratory Rate 20 09/07/17 10:11 Blood Pressure 117/64 09/07/17 13:56 O2 Sat by Pulse Oximetry (%) 97 09/06/17 20:50 Constitutional: Yes: Well Nourished Eyes: Yes: Conjunctiva Clear HENT: Yes: Atraumatic Neck: Yes: Supple Cardiovascular: Yes: Regular Rate and Rhythm Respiratory: Yes: CTA Bilaterally ...Auscultate: Yes: Normoactive Bowel Sounds ...Palpate: Yes: Soft. No: Firm/Rigid, Guarding, Hepatomegaly, Mass, Pulsatile Mass, Splenomegaly, Tenderness, Tenderness, Epigastium Labs: CBC, BMP 09/07/17 07:05 09/07/17 07:05 INR, PTT INR 1.09 (0.82-1.09) 09/06/17 17:00 Problem List - Problems (1) Calculus of gallbladder with acute cholecystitis without obstruction Assessment/Plan: associated with biliary colic, mild elevation of LFTS etiology unclear R> await official MRCP results if normal no need for ERCP check lfts in am Code(s): K80.00 - CALCULUS OF GALLBLADDER W ACUTE CHOLECYST W/O OBSTRUCTION
[2017-09-07] MEDS ORDERED: CEFOXITIN SODIUM 1 GM PUSH 1 GM/10 ML DISP.SYRIN IVPUSH ONE (21:00)
[2017-09-07] MEDS: CEFOXITIN SODIUM 1 GM PUSH 1 GM/10 ML DISP.SYRIN IVPUSH SCH (21:22)
[2017-09-08] MEDS: CEFOXITIN SODIUM 1 GM PUSH 1 GM/10 ML DISP.SYRIN IVPUSH SCH ×3 (02:40→22:00)
[2017-09-08] MEDS: DOCUSATE SODIUM 100 MG CAPSULE (FP) PO SCH ×3 (05:42→22:43)
[2017-09-08 07:35] LABS: BASOPHIL 0.3 % (0-2.0); EOSINOPHIL 0.9 % (0-4.5); MCH 32.6 pg (25.7-33.7); MCHC 33.5 g/dl (32.0-36.0); MEAN CELL VOLUME 97.3 fl (80-96); MEAN PLT VOLUME 9.5 fl (7.5-11.1); NEUTROPHILS 61.1 % (42.8-82.8); PLATELET COUNT 233 K/MM3 (134-434); RDW 13.4 % (11.6-15.6); WHITE BLOOD COUNT 12.7 K/mm3 (4.0-10.0)
[2017-09-08 07:48] LABS: ALBUMIN 3.1 g/dl (3.4-5.0); ALK PHOS 124 U/L (45-117); AMYLASE 57 U/L (25-115); ANION GAP 11 (8-16); BILIRUBIN,TOTAL 0.6 mg/dL (0.2-1.0); CALCIUM 7.6 mg/dL (8.5-10.1); CO2 21 mmol/L (21-32); CREATININE 0.7 mg/dL (0.55-1.02); GLUCOSE,RANDOM 59 mg/dL (74-106); SGOT/AST 68 U/L (15-37); SGPT/ALT 88 U/L (12-78); TOT PROT 6.4 g/dl (6.4-8.2)
[2017-09-08] MEDS ORDERED: PT OWN MED DRAWER 7, Y5N ONE ×2 (09:07→20:30)
--- NOTE | 2017-09-08 11:14 | PN ---
Progress Note, Physician Chief Complaint: RUQ/epigastric pain History of Present Illness: No overnight events. Pt seen and examined in bed. She is feeling better. Has been up ambulating, voiding ok. No BM yet, but passing gas. Hungry. Yesterday, LFTs and lipase and wbc went up. MRCP done showing many gallstones but no cbd stones, no biliary ductal dilation. GI consult noted. - Current Medication List Current Medications: Active Medications Docusate Sodium (Colace -) 100 mg PO TID [facility] Last Admin: 09/08/17 05:42 Dose: 100 mg Hydromorphone HCl (Dilaudid Injection -) 2 mg IVPB Q6H PRN PRN Reason: PAIN Sodium Chloride (Normal Saline -) 1,000 mls @ 100 mls/hr IV ASDIR [facility] Last Admin: 09/07/17 19:30 Dose: 100 mls/hr Cefoxitin Sodium (Mefoxin (Restricted To Id) -) 1 gm in 10 mls @ 120 mls/hr IVPUSH Q6H-IV [facility] Last Admin: 09/08/17 09:30 Dose: 120 mls/hr - Objective Vital Signs: Vital Signs Temperature 98.2 F 09/08/17 09:43 Pulse Rate 72 09/08/17 09:43 Respiratory Rate 20 09/08/17 09:43 Blood Pressure 119/72 09/08/17 09:43 O2 Sat by Pulse Oximetry (%) 97 09/07/17 21:00 Constitutional: Yes: Well Nourished, No Distress, Calm Eyes: Yes: Conjunctiva Clear, EOM Intact. No: Sclera Icterus Cardiovascular: Yes: Regular Rate and Rhythm. No: Murmur Respiratory: Yes: Regular, CTA Bilaterally Gastrointestinal: Yes: Soft, Tenderness (very mild RUQ laterally, no R/G). No: Distention, Tenderness, Epigastrium, Tenderness, Rebound Genitourinary: No: CVA Tenderness - Left, CVA Tenderness - Right Extremities: No: Cool, Cyanosis Integumentary: No: Jaundice, Rash Neurological: Yes: Alert, Oriented Labs: CBC, BMP 09/08/17 06:30 09/08/17 06:30 CMP Sodium 139 mmol/L (136-145) 09/08/17 06:30 Potassium 3.5 mmol/L (3.5-5.1) 09/08/17 06:30 Chloride 107 mmol/L (98-107) 09/08/17 06:30 Carbon Dioxide 21 mmol/L (21-32) D 09/08/17 06:30 Anion Gap 11 (8-16) 09/08/17 06:30 BUN 15 mg/dL (7-18) D 09/08/17 06:30 Creatinine 0.7 mg/dL (0.55-1.02) 09/08/17 06:30 Creat Clearance w eGFR > 60 (>60) 09/08/17 06:30 Random Glucose 59 mg/dL (74-106) L D 09/08/17 06:30 Lactic Acid 1.3 mmol/L (0.4-2.0) 09/08/17 06:30 Calcium 7.6 mg/dL (8.5-10.1) L 09/08/17 06:30 Total Bilirubin 0.6 mg/dL (0.2-1.0) 09/08/17 06:30 AST 68 U/L (15-37) H D 09/08/17 06:30 ALT 88 U/L (12-78) H D 09/08/17 06:30 Alkaline Phosphatase 124 U/L (45-117) H 09/08/17 06:30 Total Protein 6.4 g/dl (6.4-8.2) 09/08/17 06:30 Albumin 3.1 g/dl (3.4-5.0) L 09/08/17 06:30 Total Amylase 57 U/L (25-115) 09/08/17 06:30 Lipase 153 U/L (73-393) 09/08/17 06:30 glucose low K low lipase back to normal LFTs coming back down wbc slightly up - ....Imaging MRI: Report Reviewed, Image Reviewed Problem List - Problems (1) Calculus of gallbladder with acute cholecystitis without obstruction Assessment/Plan: keep NPO with IV fluids until postop pain meds prn trend labs GI/DVT prophylaxis IV antibiotics (Cefoxitin) per ID MRCP negative for ductal stones labs improving except wbc minimal tenderness, nearly resolved will take to OR today for lap brayden anticipate resuming clears postop pt using IS well encourage OOB/ambulation Code(s): K80.00 - CALCULUS OF GALLBLADDER W ACUTE CHOLECYST W/O OBSTRUCTION (2) Abdominal pain, acute, right upper quadrant Code(s): R10.11 - RIGHT UPPER QUADRANT PAIN (3) GERD without esophagitis Assessment/Plan: GI prophylaxis while in hospital Code(s): K21.9 - GASTRO-ESOPHAGEAL REFLUX DISEASE WITHOUT ESOPHAGITIS (4) Kidney stone on left side Code(s): N20.0 - CALCULUS OF KIDNEY
[2017-09-08] MEDS ORDERED: BUPIVACAINE HCL/PF 0.5% (5MG/ML) 10 ML VIAL ONE (12:58)
[2017-09-08] MEDS ORDERED: MIDAZOLAM HCL 2 MG/2 ML SINGLE DOSE VIAL ONE (13:32)
[2017-09-08] MEDS ORDERED: ROCURONIUM BROMIDE 50 MG/5 ML VIAL ONE (13:33)
[2017-09-08] MEDS ORDERED: PROPOFOL 20 ML ONE ×3 (13:33)
[2017-09-08] MEDS ORDERED: fentaNYL CITRATE 250 MCG/5 ML VIAL ONE (13:33)
[2017-09-08] MEDS ORDERED: cefOXitin SODIUM 2 GM VIAL (RESTRICTED TO ID) IVPB ONE (14:03)
[2017-09-08] MEDS ORDERED: KETOROLAC TROMETHAMINE 30 MG/1 ML VIAL ONE (14:15)
[2017-09-08] MEDS ORDERED: NEOSTIGMINE METHYLSULFATE 0.5 MG/ML - 10 ML MDV ONE (14:15)
[2017-09-08] MEDS ORDERED: DEXAMETHASONE SOD PHOSPHATE 4 MG/1 ML VIAL ONE (14:15)
[2017-09-08] MEDS ORDERED: GLYCOPYRROLATE 0.2 MG/1 ML VIAL ONE (14:15)
[2017-09-08] MEDS ORDERED: HYDROmorphone HCL CARPU-JECT 1 MG/1 ML DISP.SYRIN IVPUSH PRN (14:43)
[2017-09-08] MEDS ORDERED: ONDANSETRON 4 MG/2 ML VIAL IVPUSH PRN ×2 (14:43→15:59)
[2017-09-08] MEDS ORDERED: LACTATED RINGERS SOLUTION 1,000 ML IV SCH (14:45)
--- NOTE | 2017-09-08 15:40 | OP ---
Operative Note - Note: Operative Date: 09/08/17 Pre-Operative Diagnosis: acute cholecystitis with gallstone pancreatitis Operation: laparoscopic cholecystectomy Findings: enlarged, edematous gallbladder, decompressed of 40ml hydrops, multiple stones present; critical view identified Post-Operative Diagnosis: Same as Pre-op Surgeon: Tru Menon [employer] Team Member: Nate Hopson Anesthesiologist/SHEET [employer] OUT WORKER: Halima Carnes Anesthesia: General, Local (10ml 0.5% marcaine) Specimens Removed: gallbladder to pathology Estimated Blood Loss (mls): 10 Fluid Volume Replaced (mls): 1,000 (crystalloid) Operative Report Dictated: Yes
[2017-09-08] MEDS ORDERED: IBUPROFEN 600 MG TABLET (FP) PO PRN ×2 (15:42→15:59)
[2017-09-08] MEDS ORDERED: ACETAMINOPHEN 325 MG TABLET (FP) PO PRN ×2 (15:42→15:59)
[2017-09-08] MEDS ORDERED: oxyCODONE HCL 5 MG TABLET PO PRN ×2 (15:43→15:59)
[2017-09-08] MEDS ORDERED: D5-1/2NS+20 MEQ KCL - 20 MEQ/1,000 ML INFUS.BAG IV SCH ×2 (15:45→15:59)
[2017-09-08] MEDS ORDERED: HYDROmorphone HCL CARPU-JECT 2 MG/1 ML DISP.SYRIN IVPB PRN ×2 (15:47→15:59)
[2017-09-09] MEDS: CEFOXITIN SODIUM 1 GM PUSH 1 GM/10 ML DISP.SYRIN IVPUSH SCH ×2 (03:00→10:30)
[2017-09-09] MEDS: DOCUSATE SODIUM 100 MG CAPSULE (FP) PO SCH (06:23)
[2017-09-09 08:22] LABS: BASOPHIL 0.8 % (0-2.0); MCH 32.4 pg (25.7-33.7); MCHC 33.7 g/dl (32.0-36.0); MEAN CELL VOLUME 96.1 fl (80-96); MEAN PLT VOLUME 9.3 fl (7.5-11.1); PLATELET COUNT 221 K/MM3 (134-434); RDW 13.3 % (11.6-15.6); WHITE BLOOD COUNT 12.4 K/mm3 (4.0-10.0)
[2017-09-09 08:54] LABS: ALBUMIN 2.8 g/dl (3.4-5.0); ANION GAP 5 (8-16); BILIRUBIN,TOTAL 0.3 mg/dL (0.2-1.0); CALCIUM 8.6 mg/dL (8.5-10.1); CO2 29 mmol/L (21-32); CREATININE 0.6 mg/dL (0.55-1.02); GLUCOSE,RANDOM 140 mg/dL (74-106); SGOT/AST 75 U/L (15-37); SGPT/ALT 85 U/L (12-78)
[2017-09-09 08:55] LABS: ALK PHOS 111 U/L (45-117)
--- NOTE | 2017-09-09 10:22 | PN ---
Progress Note, Physician Chief Complaint: RUQ/epigastric pain History of Present Illness: s/p lap brayden No overnight events. Pt seen and examined in bed. She is feeling much better. Was up at 5am and has been ambulating, voiding ok. No BM yet, but passing gas. Tolerating clears, would like coffee. No fevers or nausea. Using IS with good effort. No complaints of pain, has not used pain med this am. - Current Medication List Current Medications: Active Medications Acetaminophen (Tylenol -) 650 mg PO Q6H PRN PRN Reason: FEVER OR PAIN - Objective Vital Signs: Vital Signs Temperature 98.4 F 09/09/17 06:00 Pulse Rate 69 09/09/17 06:00 Respiratory Rate 18 09/09/17 06:00 Blood Pressure 105/58 09/09/17 06:00 O2 Sat by Pulse Oximetry (%) 98 09/08/17 21:00 Constitutional: Yes: Well Nourished, No Distress, Calm Eyes: Yes: Conjunctiva Clear, EOM Intact. No: Sclera Icterus Cardiovascular: Yes: Regular Rate and Rhythm. No: Murmur Respiratory: Yes: Regular, CTA Bilaterally Gastrointestinal: Yes: Normal Bowel Sounds, Soft, Distention (minimal). No: Tenderness (barely even incisional tenderness), Tenderness, Epigastrium Extremities: No: Cool, Cyanosis Edema: No Integumentary: Yes: Incision (x4 dressed). No: Jaundice Wound/Incision: Yes: Steri Strips (under dressings), Dressing Dry and Intact (x4 ). No: Dressing Removed Neurological: Yes: Alert, Oriented Labs: CBC, BMP 09/09/17 07:00 09/09/17 07:00 CMP Sodium 141 mmol/L (136-145) 09/09/17 07:00 Potassium 4.5 mmol/L (3.5-5.1) D 09/09/17 07:00 Chloride 107 mmol/L (98-107) 09/09/17 07:00 Carbon Dioxide 29 mmol/L (21-32) D 09/09/17 07:00 Anion Gap 5 (8-16) L 09/09/17 07:00 BUN 11 mg/dL (7-18) D 09/09/17 07:00 Creatinine 0.6 mg/dL (0.55-1.02) 09/09/17 07:00 Creat Clearance w eGFR > 60 (>60) 09/09/17 07:00 Random Glucose 140 mg/dL (74-106) H D 09/09/17 07:00 Calcium 8.6 mg/dL (8.5-10.1) 09/09/17 07:00 Total Bilirubin 0.3 mg/dL (0.2-1.0) D 09/09/17 07:00 AST 75 U/L (15-37) H 09/09/17 07:00 ALT 85 U/L (12-78) H 09/09/17 07:00 Alkaline Phosphatase 111 U/L (45-117) 09/09/17 07:00 Total Protein 6.0 g/dl (6.4-8.2) L 09/09/17 07:00 Albumin 2.8 g/dl (3.4-5.0) L 09/09/17 07:00 Lipase 191 U/L (73-393) 09/09/17 07:00 LFTs as expected, alk phos down to normal lipase normal wbc appropriate for postop Problem List - Problems (1) Calculus of gallbladder with acute cholecystitis without obstruction Assessment/Plan: POD1 s/p laparoscopic cholecystectomy IV antibiotics completed overnight no sig tenderness, no c/o pain incisions/dressings c/d/i tolerating clears - advance to regular pt using IS well encourage OOB/ambulation once tolerating lunch, january d/c home to f/u in 2 weeks instructions in d/c plan Thank you for the opportunity to participate in the care of this patient. Code(s): K80.00 - CALCULUS OF GALLBLADDER W ACUTE CHOLECYST W/O OBSTRUCTION (2) Abdominal pain, acute, right upper quadrant Code(s): R10.11 - RIGHT UPPER QUADRANT PAIN (3) GERD without esophagitis Code(s): K21.9 - GASTRO-ESOPHAGEAL REFLUX DISEASE WITHOUT ESOPHAGITIS (4) Kidney stone on left side Code(s): N20.0 - CALCULUS OF KIDNEY
--- NOTE | 2017-09-09 11:32 | PN ---
Progress Note, Physician Chief Complaint: if tolerayes diet d/c home today - Current Medication List Current Medications: Active Medications Acetaminophen (Tylenol -) 650 mg PO Q6H PRN PRN Reason: FEVER OR PAIN Last Admin: 09/09/17 10:34 Dose: 650 mg - Objective Vital Signs: Vital Signs Temperature 97.8 F 09/09/17 09:00 Pulse Rate 64 09/09/17 09:00 Respiratory Rate 18 09/09/17 09:00 Blood Pressure 111/68 09/09/17 09:00 O2 Sat by Pulse Oximetry (%) 98 09/08/17 21:00 Constitutional: Yes: Well Nourished Eyes: Yes: WNL HENT: Yes: WNL Neck: Yes: WNL Cardiovascular: Yes: WNL Respiratory: Yes: WNL Gastrointestinal: Yes: WNL ...Rectal Exam: Yes: WNL Labs: CBC, BMP 09/09/17 07:00 09/09/17 07:00 INR, PTT INR 1.09 (0.82-1.09) 09/06/17 17:00
[2017-09-09 13:55] VITALS: BP 102/51; PULSE 61; TEMP 97.7
--- NOTE | 2017-09-09 13:56 | DS ---
Physical Examination Vital Signs: Vital Signs Temperature 97.8 F 09/09/17 09:00 Pulse Rate 64 09/09/17 09:00 Respiratory Rate 18 09/09/17 09:00 Blood Pressure 111/68 09/09/17 09:00 O2 Sat by Pulse Oximetry (%) 95 09/09/17 09:00 Constitutional: Yes: Well Nourished Eyes: Yes: WNL HENT: Yes: WNL Neck: Yes: WNL Cardiovascular: Yes: WNL Respiratory: Yes: WNL Gastrointestinal: Yes: WNL ...Rectal Exam: Yes: Deferred Renal/: Yes: WNL Breast(s): Yes: WNL Musculoskeletal: Yes: WNL Extremities: Yes: WNL Peripheral Pulses WNL: Yes Labs: CBC, BMP 09/09/17 07:00 09/09/17 07:00 Discharge Summary Reason For Visit: BILIARY CALCULUS WITH CHOLECYSTITIS Current Active Problems Abdominal pain, acute, right upper quadrant (Acute) Calculus of gallbladder with acute cholecystitis without obstruction (Acute) Cholecystitis with cholelithiasis (Acute) GERD without esophagitis (Acute) Pancreatitis due to biliary obstruction (Acute) Condition: Good - Instructions Diet, Activity, Other Instructions: Postoperative instructions: You had a laparoscopic cholecystectomy on 09/08/[address] Tru Menon of [facility]. Activity: Resume your usual activities gradually, but no heavy exertion or lifting more than 10-15 pounds for 1 month. Remove dressings 48 hours after surgery; sticky tapes underneath will fall off by themselves. You may shower daily starting then, just pat the incision areas dry. No bath or swimming until skin incisions are fully healed. Eat lightly at first, but advance to your usual diet as tolerated. Pain: For pain, you may use and alternate Tylenol (acetaminophen) and/or ibuprofen every 6 hours each as needed; this means that you can take one OR the other at 3-hour intervals. Do not take more than 4000mg of acetaminophen in a day. Take medications as prescribed or indicated on the labeling. Follow-up: Call Dr. Menon's office at [phone] to make your postop appointment (Monday ~2 weeks after surgery). Clinic is held in the [facility] on the first floor of [facility]. Call the office if you have: * increasing pain not responsive to pain medication * fever of 101F or higher * vomiting * unusual or increasing bleeding or drainage from wounds * increasing redness or swelling at wound sites * inability to urinate Also, see your primary medical doctor (Dr. Guillaume) within 1-2 weeks. Referrals: Tru Menon MD [Staff Physician] - 2 Weeks Dagoberto Guillaume MD [Primary Care Provider] - Disposition: HOME - Home Medications Comprehensive Discharge Medication List: Ambulatory Orders NK [No Known Home Medication] 09/06/17
--- NOTE | 2017-09-12 18:42 | PATH ---
Surgical Pathology Report Patient Name: BRIANA AMBROSE [facility]. Rec. #: [id number] /Age/Gender: 1955 (Age: 62) / F Account: [id number] Location: [address] [place] [address] Taken: 09/08/2017 Received: 09/11/2017 Reported: 09/12/2017 Physicians: Dagoberto Guillaume M.D. Specimen(s) Received GALLBLADDER Clinical History Preoperative diagnosis: Acute cholecystitis with gallstone pancreatitis Final Diagnosis GALLBLADDER, LAPAROSCOPIC CHOLECYSTECTOMY: ACUTE AND CHRONIC CHOLECYSTITIS WITH CHOLELITHIASIS. Electronically Signed Briana Guido M.D. Gross Description Received in formalin, labeled "gallbladder," is a 11.0 x 2.8 x 2.6 cm. gallbladder with a 0.2 cm. in length portion of cystic duct attached. The outer surface is cortez-brown and varies from smooth to shaggy. The lumen contains ratliff, tenacious bile as well as multiple yellow, irregular to fragmented choleliths ranging from 0.3-1.7 cm in greatest dimension. The mucosa is ratliff and focally eroded. The wall of the gallbladder ranges from 0.1-0.4 cm. in thickness. Blue Crabber sections are submitted in one cassette. 09/11/201709/11/2017
--- NOTE | 2017-09-15 09:42 | OP ---
DATE OF OPERATION: 09/08/2017 PREOPERATIVE DIAGNOSIS: Acute cholecystitis with gallstone pancreatitis. POSTOPERATIVE DIAGNOSIS: Acute cholecystitis with gallstone pancreatitis. PROCEDURE: Laparoscopic cholecystectomy. SURGEON: Tru Menon MD LANDSCAPING CREW LEADER: Nate Hopson MD ANESTHESIA: General endotracheal and local, 10 mL of 0.5% Marcaine. ESTIMATED BLOOD LOSS: 10 mL FLUIDS: 1 L of crystalloid. SPECIMEN: Gallbladder to Pathology. FINDINGS: Enlarged, edematous gallbladder decompressed of 40 mL of hydrops. Multiple stones present. Critical view was identified. DISPOSITION: Stable and extubated to PACU. INDICATIONS FOR PROCEDURE: The patient is a 62-year-old female, generally healthy, with a history of reflux disease and urolithiasis as well as 3 sections, who presented complaining of right upper quadrant pain that began early the previous overnight, associated with abdominal distention and bloating. An episode of self-induced vomiting did not relieve the pain, and she went to her PCP, who sent her to the ER, where she had a white count of 10.6, slightly elevated alkaline phosphatase but normal lipase and LFTs otherwise. She was afebrile, and an ultrasound in the emergency room showed multiple gallstones and a distended gallbladder with a thickened wall but no pericholecystic fluid and no biliary ductal dilation. She had a CT scan that had been done in July, which showed at least 3 large, rim-calcified gallstones, and had pain and tenderness in the right upper quadrant and epigastric area despite pain medication. She was admitted to Medicine and given IV fluids and antibiotics and kept n.p.o. with a diagnosis of acute cholecystitis. The next morning, her labs were repeated, and her lipase became elevated to approximately 600. Her LFTs all hoang slightly as did her white count, so she had an MRCP done that was negative for intraductal stones, but she now also carried a diagnosis of gallstone pancreatitis. Thus, surgery was delayed a day, and the next day her labs, in fact, all were returning toward normal. Her pain and tenderness were much better, and again, the MRCP had been read as negative; so, risks, benefits, and alternatives of laparoscopic, possible open cholecystectomy were discussed with the patient including, but not limited to, bleeding, infection, injury to adjacent structures, bile leak or ductal injury, intraabdominal abscess, hernia, and need for further procedures, alternatives including antibiotics and delayed or no surgery, the risks of which included recurrent biliary colic, cholecystitis, cholangitis, and pancreatitis. The patient does desire to proceed with an operation. Informed consent was signed, and she is now brought to the operating room for the same. OPERATIVE TECHNIQUE: The patient was brought to the operating room and laid supine on the operating table. Sequential compression devices were applied to bilateral lower extremities, and ongoing treatment antibiotics were continued appropriately preoperatively. After induction and intubation by Anesthesia, the patient's abdomen was prepped and draped in sterile fashion. A small supraumbilical midline incision was made with a scalpel and carried into subcutaneous tissues with electrocautery, until the abdominal wall fascia was identified, scored, and elevated with Porsha clamps. The peritoneum was entered bluntly with the tip of a clamp, and a fingertip was inserted to ensure entry into the abdominal cavity and the absence of any underlying adhesions. A stay suture of 0 Vicryl was placed in the fascia in figure-of-8 fashion for later closure, and the John Paul trocar was introduced directly into the abdominal cavity and secured in place with the balloon. The abdomen was insufflated with carbon dioxide, and the laparoscope inserted to inspect the abdominal cavity. The patient was placed in reverse Trendelenburg position with the right side planed upward. The gallbladder was visible at the edge of the liver and appeared to be distended and tense. Additional 5-mm ports were placed in the subxiphoid and right upper quadrant for a total of three. A grasper was introduced through the subxiphoid port and used to gently push the gallbladder up, noting that it was, indeed, tense, edematous, and enlarged. The decompression needle was introduced through a right upper quadrant port and used to decompress the gallbladder of 40 mL of clear fluid (hydrops). The gallbladder was then grasped with the grasper and elevated over the liver edge from the right upper quadrant port. A second grasper from the right was also used to grasp toward the infundibulum of the gallbladder, which was bulging with stones, below the level of the stones and used to retract the gallbladder laterally. A [place] dissector was used to begin dissection of the base of the gallbladder to identify the cystic duct and artery. Despite the bulging gallbladder with stones in it above the level of the cystic duct, the duct itself was easily identifiable and quickly isolated with the [place] dissector and visualized from medial and lateral sides to be the only structure directly entering the gallbladder in the critical view. The cystic artery was similarly identified just medially, and first the duct and then the artery were clipped, two proximally and one distally, and then, both were divided with endoscissors. The hook cautery was then used to take the gallbladder off of the liver bed, which was accomplished without any bile or stone spillage. After that, once the gallbladder had been completely , it was placed in an Endo Catch bag and retrieved out the umbilical port site. Multiple stones were palpable in the gallbladder, and it was passed off as a pathology specimen. Once the John Paul trocar and pneumoperitoneum had been re-established, the operative site was re-inspected for hemostasis, and there was no active bleeding noted. The area was irrigated with saline solution and suctioned clear of fluid and residual blood clots. The 5-mm ports were removed under direct vision, the patient returned to neutral position, and then, the John Paul trocar and camera were also removed from the abdominal cavity, which was exsufflated of carbon dioxide. The stay suture at the umbilical port site was tied to close the fascia there. Hemostasis was achieved in the port sites with electrocautery where needed. Local anesthetic was infiltrated into all the port sites, and skin was closed with 4-0 Vicryl subcuticular sutures, including a running at the umbilical site. Benzoin and Steri-Strips were then applied to each incision, which were covered with dressings of gauze and Tegaderm. Counts were correct at the end of the procedure. The patient was then awakened and extubated by Anesthesia, moved back to a stretcher, and taken to the recovery room in stable condition, having tolerated the procedure well. Dr. Hopson was an essential showroom sales assistant throughout the procedure, including assisting with entry into the abdominal cavity, decompression of the gallbladder, retraction and manipulation of the gallbladder throughout the case, and assistance with closing the skin. Tru Menon M.D. AYLEEN/[id number] MTDD
== END 2017-09-09 15:12 | disposition home or self-care (01) | DRG 263 ==
LOC: JER 13:56 → JERBED 19:00 → J5S 21:13
PROVIDERS: ADMIT Family Medicine; ATTEND Family Medicine
PROC: 0FT44ZZ Resection of Gallbladder, Percutaneous Endoscopic Approach (ICD-10-PCS; principal; 2017-09-08 14:00)
DX: K80.00 Calculus of gallbladder with acute cholecystitis without obstruction (principal); K85.10 Biliary acute pancreatitis without necrosis or infection; K21.9 Gastro-esophageal reflux disease without esophagitis; N20.0 Calculus of kidney; R10.11 Right upper quadrant pain; R60.9 Edema, unspecified
CPT/HCPCS: 36415; 74020-TC; 74181-TC; 76705-TC; 76775-TC; 80053; 81003; 82150; 83605; 83690; 85025; 85610; 86850; 86900; 86901; 87040; 87086; 88304-TC; 93005; 93010; 94010; 94760; 99284-25

== ENCOUNTER 2021-04-04 13:17 | Emergency (ER) | payer BC ==
[2021-04-04 13:23] VITALS: BMI 23.3
[2021-04-04] MEDS ORDERED: METOCLOPRAMIDE HCL INJECTION 10 MG/2 ML VIAL IVPUSH ONE (13:31)
[2021-04-04] MEDS ORDERED: SODIUM CHLORIDE 500 ML IV STA (13:31)
[2021-04-04] MEDS ORDERED: ACETAMINOPHEN 1000 MG/100 ML VIAL (NON FORMULARY) IVPB ONE (13:33)
[2021-04-04] MEDS ORDERED: ACETAMINOPHEN INJECTION 100 ML IVPB ONE (13:45)
[2021-04-04] MEDS ORDERED: METOCLOPRAMIDE HCL INJECTION 10 MG/2 ML VIAL ONE (13:45)
[2021-04-04 14:26] LABS: BASO % 0.5 % (0-2.0); EOS % 0.1 % (0-4.5); HEMOGLOBIN 12.8 GM/dL (10.7-15.3); LYMPH % 19.1 % (8-40); MCH 32.9 pg (25.7-33.7); MCHC 34.5 g/dl (32.0-36.0); MEAN CELL VOLUME 95.3 fl (80-96); MEAN PLT VOLUME 8.7 fl (7.5-11.1); NEUT % 77.3 % (42.8-82.8); PLATELET COUNT 253 10^3/uL (134-434); RBC 3.88 M/mm3 (3.60-5.2); RDW 13.4 % (11.6-15.6); WHITE BLOOD COUNT 9.1 K/mm3 (4.0-10.0)
[2021-04-04 14:48] LABS: CALCIUM 8.8 mg/dL (8.5-10.1)
[2021-04-04 14:49] LABS: ALBUMIN 3.9 g/dl (3.4-5.0); BLOOD UREA NITROGEN 17.9 mg/dL (7-18)
[2021-04-04 14:53] LABS: BILIRUBIN,TOTAL 0.2 mg/dL (0.2-1); TOT PROT 7.5 g/dl (6.4-8.2)
[2021-04-04 14:57] LABS: CREATININE 0.6 mg/dL (0.55-1.3)
[2021-04-04] MEDS ORDERED: ONDANSETRON 4 MG/2 ML VIAL IVPB ONE (15:23)
[2021-04-04] MEDS ORDERED: ONDANSETRON 4 MG/2 ML VIAL ONE (15:56)
[2021-04-04 17:03] VITALS: BP 111/68; PULSE 81; TEMP 98
== END 2021-04-04 17:03 | disposition home or self-care (01) ==
LOC: JER 13:17
PROC: 3E033NZ Introduction of Analgesics, Hypnotics, Sedatives into Peripheral Vein, Percutaneous Approach (ICD-10-PCS; principal; 2021-04-04)
PROC: 3E0337Z Introduction of Electrolytic and Water Balance Substance into Peripheral Vein, Percutaneous Approach (ICD-10-PCS; 2021-04-04)
PROC: 3E033GC Introduction of Other Therapeutic Substance into Peripheral Vein, Percutaneous Approach (ICD-10-PCS; 2021-04-04)
PROC: 3E033GC Introduction of Other Therapeutic Substance into Peripheral Vein, Percutaneous Approach (ICD-10-PCS; 2021-04-04)
DX: G44.209 Tension-type headache, unspecified, not intractable (principal)
CPT/HCPCS: 36415; 70450-TC; 80053; 85025; 93005; 93010; 99285-25; J0131

== ENCOUNTER 2021-09-26 19:59 | Emergency (ER) | payer BC ==
[2021-09-26 20:14] VITALS: TEMP 98.1; BMI 18.2
[2021-09-26] MEDS ORDERED: ONDANSETRON 4 MG/2 ML VIAL IVPUSH ONE (21:58)
[2021-09-26] MEDS ORDERED: FAMOTIDINE 20 MG/50 ML IVPB 20 MG/50 ML MG IVPB ONE ×2 (21:58→22:32)
[2021-09-26] MEDS ORDERED: METOCLOPRAMIDE HCL INJECTION 10 MG/2 ML VIAL IVPUSH ONE (21:58)
[2021-09-26] MEDS ORDERED: MAG HYDROX/AL HYDROX/SIMETH 30 ML UNIT-DOSE CUP PO ONE (21:58)
[2021-09-26] MEDS ORDERED: SODIUM CHLORIDE 0.9% 500 ML INFUS.BAG IV ONE (21:58)
[2021-09-26] MEDS ORDERED: METOCLOPRAMIDE HCL INJECTION 10 MG/2 ML VIAL ONE (22:31)
[2021-09-26] MEDS ORDERED: MAG HYDROX/AL HYDROX/SIMETH 30 ML UNIT-DOSE CUP ONE (22:32)
[2021-09-26] MEDS ORDERED: ONDANSETRON 4 MG/2 ML VIAL ONE (22:32)
[2021-09-26 23:10] LABS: BASO % 0.5 % (0-2.0); HEMATOCRIT 38.6 % (32.4-45.2); HEMOGLOBIN 13.4 GM/dL (10.7-15.3); LYMPH % 13.1 % (8-40); MCHC 34.9 g/dl (32.0-36.0); MEAN CELL VOLUME 94.7 fl (80-96); MEAN PLT VOLUME 8.6 fl (7.5-11.1); MONO % 3.3 % (3.8-10.2); NEUT % 83.1 % (42.8-82.8); PLATELET COUNT 245 10^3/uL (134-434); RBC 4.07 M/mm3 (3.60-5.2); RDW 13.5 % (11.6-15.6); WHITE BLOOD COUNT 5.8 K/mm3 (4.0-10.0)
[2021-09-27 00:09] LABS: CHLORIDE 102 mmol/L (98-107); SODIUM 136 mmol/L (136-145)
[2021-09-27 00:16] LABS: ALBUMIN 3.8 g/dl (3.4-5.0); ANION GAP 8 MMOL/L (8-16); BLOOD UREA NITROGEN 15.2 mg/dL (7-18); CALCIUM 9.4 mg/dL (8.5-10.1); CO2 26 mmol/L (21-32); GLUCOSE,RANDOM 115 mg/dL (74-106); LIPASE 129 U/L (73-393)
[2021-09-27 00:19] LABS: CREATININE 0.7 mg/dL (0.55-1.3); SGOT/AST 39 U/L (15-37)
[2021-09-27 00:21] LABS: BILIRUBIN,TOTAL 0.3 mg/dL (0.2-1); TOT PROT 8.2 g/dl (6.4-8.2)
[2021-09-27 00:22] LABS: ALK PHOS 118 U/L (45-117)
[2021-09-27 00:36] LABS: SGPT/ALT 27 U/L (13-61)
[2021-09-27] MEDS ORDERED: ACETAMINOPHEN 500 MG TABLET (FP) PO ONE (02:07)
[2021-09-27] MEDS ORDERED: AMOX TR/POT CLAV 875MG/125MG TABLETS (FP) PO ONE (02:07)
[2021-09-27] MEDS ORDERED: AMOX TR/POT CLAV 875MG/125MG TABLETS (FP) ONE (02:32)
[2021-09-27 03:04] VITALS: BP 127/85; PULSE 88
[2021-09-28 10:07] LABS: SARS-CoV-2 NAA Detected (Not Detected)
== END 2021-09-27 03:52 | disposition home or self-care (01) ==
LOC: JER 19:59
PROC: 3E033GC Introduction of Other Therapeutic Substance into Peripheral Vein, Percutaneous Approach (ICD-10-PCS; principal; 2021-09-26)
DX: R51.9 Headache, unspecified (principal); J32.9 Chronic sinusitis, unspecified; R11.2 Nausea with vomiting, unspecified
CPT/HCPCS: 36415; 70450-TC; 70496-TC; 80053; 83690; 84484; 85025; 93005; 93010; 99285-25; C9803; U0003; U0005